=== PATIENT | female | born 1990 | race Caucasian/White ===

== ENCOUNTER 2016-04-26 08:40 | Emergency (ER) | payer MEDICAID ==
--- NOTE | 2016-04-26 09:22 | EDM.PDOC ---
ED HPI ENT - General Chief Complaint: ENT Problem Stated Complaint: SWOLLEN GUMS- LIPS Time Seen by Provider: 04/26/16 08:40 Source: Reports: Patient History Limitations: Reports: No limitations - History of Present Illness INITIAL COMMENTS - FREE TEXT/NARRATIVE: 25 years old w f came to the ed due to gum swelling and pain for 2-3 days. Pt smokes 1/2 of cigarets a days, is applying mouth care without improvement. Pt stated he temp was up this morning. Temp on arrival was 36.7. Pt stated she had pain all night long, could not sleep. 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 - Related Data Allergies/ADRs: Allergies Allergy/AdvReac Type Severity Reaction Status Date / Time amoxicillin [Amoxicillin] Allergy Rash Verified 04/26/16 09:00 erythromycin ethylsuccinate Allergy Rash Verified 04/26/16 09:00 [From Pediazole] sulfisoxazole acetyl Allergy Rash Verified 04/26/16 09:00 [From Pediazole] Home Meds: Home Meds Azithromycin [IJP: Azithromycin] 250 mg PO DAILY #6 tab 04/26/16 [Rx] traMADol [Ultram] 50 mg PO Q4H PRN #8 tab 04/26/16 [Rx] Past Medical History Respiratory History: Reports: Asthma Genitourinary History: Reports: UTI, recurrent 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 degenerative disc Dz Psychiatric History: Reports: ADHD, Other (see below) Other Psychiatric History: hx of drug seeking - Past Surgical History HEENT Surgical History: Reports: Adenoidectomy, Oral surgery, Tonsillectomy Musculoskeletal Surgical History: Reports: Other (see below) Other Musculoskeletal Surgeries/Procedures:: femur. 2 back Sx Social & Family History - Family History Family Medical History: Noncontributory - Tobacco Use Smoking Status *Q: Current Every Day Smoker Years of Tobacco use: 8 Packs/Tins Daily: 0.5 Used Tobacco, but Quit: No Second Hand Smoke Exposure: Yes - Caffeine Use Caffeine Use: Reports: None - Alcohol Use Days Per Week of Alcohol Use: 3 Number of Drinks Per Day: 1 Total Drinks Per Week: 3 - Recreational Drug Use Recreational Drug Use: No ED ROS ENT - Review of Systems Review Of Systems: See Below Constitutional: Reports: no symptoms HEENT: Reports: Other (gum swelling, pain) Respiratory: Reports: no symptoms Cardiovascular: Reports: No symptoms Endocrine: Reports: no symptoms GI/Abdominal: Reports: No symptoms : Reports: no symptoms Musculoskeletal: Reports: back pain Skin: Reports: no symptoms Neurological: Reports: no symptoms Psychiatric: Reports: No symptoms Hematologic/Lymphatic: Reports: no symptoms Immunologic: Reports: no symptoms ED EXAM, ENT - Physical Exam Exam: See Below Exam Limited By: No limitations General Appearance: alert, WD/WN, mild distress Ears: normal external exam, normal canal Nose: normal inspection, normal mucousa Mouth/Throat: Normal lips, Normal oropharynx, Dental pain, Gum swelling Head: atraumatic, normocephalic Neck: normal inspection, supple, non-tender, full range of motion Respiratory/Chest: no respiratory distress, lungs clear, normal breath sounds, no accessory muscle use, chest non-tender Cardiovascular: normal peripheral pulses, regular rate, rhythm, no edema, no gallop, no JVD, no murmur, no rub GI/Abdominal: normal bowel sounds, soft, non tender, no organomegaly, no distention, no abnormal bruit, no mass (Female) Exam: Deferred Rectal (Female) Exam: Deferred Back: normal inspection Extremities: normal inspection, normal range of motion, non-tender, no pedal edema Neurological: alert, oriented, CN II-XII intact, normal cognition, normal gait Psychiatric: normal affect, normal mood Skin: Warm, Dry, Intact, Normal color, No rash Lymphatic: no adenopathy Course - Vital Signs Text/Narrative:: 25 years old w f came to the ed due to gum swelling and pain for 2-3 days. Pt smokes 1/2 of cigarets a days, is applying mouth care without improvement. Pt stated he temp was up this morning. Temp on arrival was 36.7. Pt stated she had pain all night long, could not sleep. PE: Swollen gums Impression: Gingivitis Tx: Azithromycin (pt stated she was tolerating this mediscation in the past), Ultram, Viscous lidocain. Reexam: Improvement Plan: D/C with instructions Last Recorded V/S: Last Vital Signs Temp 36.8 C 04/26/16 09:55 Pulse 82 04/26/16 09:55 Resp 18 04/26/16 09:55 BP 116/90 04/26/16 09:55 Pulse Ox 100 04/26/16 09:55 - Orders/Labs/Meds Meds: Medications Discontinued Medications Generic Name Dose Route Start Last Admin Trade Name Freq PRN Reason Stop Dose Admin Lidocaine HCl 15 ml 04/26/16 09:32 04/26/16 09:41 Xylocaine 2% Viscous PO 04/26/16 09:33 15 ml ONETIME ONE Administration Tramadol HCl 100 mg 04/26/16 09:32 04/26/16 09:41 Ultram PO 04/26/16 09:33 100 mg ONETIME ONE Administration Departure - Departure Time of Disposition: 09:27 Disposition: Home, Self-Care 01 Condition: good Clinical Impression: Gingivitis Prescriptions: Azithromycin [IJP: Azithromycin] 250 mg PO DAILY #6 tab traMADol [Ultram] 50 mg PO Q4H PRN #8 tab PRN Reason: severe pain Instructions: Gingivitis Referrals: Antoni Waldrop MD [Primary Care Provider] - Forms: ED Department Discharge Additional Instructions: please follow instructions given, please see a dentist, please came back to the ed if symptoms get worse acutely.
[2016-04-26] MEDS ORDERED: Lidocaine 2% Viscous Solution 15 ML Cup PO ONE (09:32)
[2016-04-26] MEDS ORDERED: traMADol 50 MG Tab PO ONE (09:32)
[2016-04-26 10:22] VITALS: BP 116/90
== END 2016-04-26 09:55 | disposition home or self-care (01) ==
LOC: FB.ED 08:40
DX: K05.10 Chronic gingivitis, plaque induced (principal); J45.909 Unspecified asthma, uncomplicated; F17.210 Nicotine dependence, cigarettes, uncomplicated; Z88.1 Allergy status to other antibiotic agents; Z88.2 Allergy status to sulfonamides
CPT/HCPCS: 99282; 99283; A9270

== ENCOUNTER 2017-10-03 09:16 | Day surgery (SDC) | payer MEDICAID ==
[~2017-10-03 09:16] MED LIST: Lactated Ringers 1,000 ML IV SCH; Sodium Chloride 0.9% 10 ML Syringe FLUSH PRN
[2017-10-03] MEDS ORDERED: Albuterol/Ipratropium 3.0-0.5 MG/3 ML Neb Soln NEB ONE (11:08)
[2017-10-03] MEDS ORDERED: Albuterol/Ipratropium 3.0-0.5 MG/3 ML Neb Soln ONE (11:12)
[2017-10-03] MEDS ORDERED: Ondansetron 4 MG/2 ML SDV IVPUSH ONE (11:45)
[2017-10-03] MEDS ORDERED: Midazolam 1 MG/ML 2 ML SDV IV ONE (11:45)
[2017-10-03] MEDS ORDERED: Propofol 200 MG/20 ML SDV IV ONE (11:45)
[2017-10-03] MEDS ORDERED: Lactated Ringers 1,000 ML IV ONE (11:45)
[2017-10-03] MEDS ORDERED: fentaNYL 100 MCG/2 ML SDV IV ONE (11:45)
[2017-10-03] MEDS ORDERED: Ketorolac 30 MG/ML SDV IVPUSH ONE (11:45)
[2017-10-03] MEDS ORDERED: Bupivacaine 0.5% 30 ML SDV INJECT ONE (12:02)
[2017-10-03] MEDS ORDERED: Lidocaine 1% with EPINEPHrine 1:100,000 20 ML MDV INJECT ONE (12:02)
--- NOTE | 2017-10-03 12:23 | PCM.OPNOTE ---
- General Post-Op/Procedure Note Date of Surgery/Procedure: 10/03/17 Operative Procedure(s): excision of nodule in scar Findings: 3x1 cm cystic nodule Pre Op Diagnosis: tender nodule c section incision. Post-Op Diagnosis: Same Anesthesia Technique: Local (18 ml 1 % lido with epi/0.5% buvipicaine), MAC Primary Surgeon: Aldair Pan Anesthesia Provider: Andrew Bliss Pathology: scar tissue Complications: None Condition: Good Free Text/Narrative:: see dictation
[2017-10-03] MEDS ORDERED: hydrOXYzine HCl 50 MG/ML SDV IM ONE (13:41)
--- NOTE | 2017-10-03 13:45 | CR ---
INDICATION: Preop, possible pneumonia, patient coughing. CHEST: Two PA views and a lateral view of the chest 10/03/2017 were compared with 08/17/2010 and again revealed a moderate dextroconvex scoliosis of the thoracic spine. Heart and mediastinum were unremarkable. An active infiltrate or effusion was not identified. IMPRESSION: No acute process. Report was called to Surgery, Janet, immediately after the examination was completed on 10/03/2017. CORNELIA
[2017-10-03 14:40] VITALS: BP 110/74
--- NOTE | 2017-10-03 19:02 | OR ---
DATE OF OPERATION: 10/03/2017 SURGEON: Aldair Pan MD PROCEDURE PERFORMED: Excisional biopsy of scar. PREOPERATIVE DIAGNOSIS: Nodule, scar. POSTOPERATIVE DIAGNOSIS: Nodule, scar. INDICATIONS FOR PROCEDURE: This is a 26-year-old white female, who is referred by Dr. Darek Uribe. She had a cystic tender mass noted on ultrasound in the left lower quadrant lateral aspect of her previous Pfannenstiel incision. It was tender, it was not able to be aspirated. She was offered and accepted excisional biopsy. INTRAOPERATIVE FINDINGS: A nodule with cystic component was identified essentially involving Desean's fascia. The total anesthetic was 18 mL. DESCRIPTION OF OPERATION: After an excellent IV sedation was administered, the patient was prepped and draped in usual sterile manner. The area of the planned incision was infiltrated with a 1:1 mixture of 1% lidocaine with epinephrine, 0.5% bupivacaine. Incision was then made and the sharp dissection was carried out exposing the nodule. This was then grasped with an Allis clamp and excised from the surrounding tissues using Rees scissors. On palpation, the abdominal wall fascia was noted to be completely intact. The Desean's was reapproximated with a running 0 Vicryl and a running subcu 4-0 Vicryl was used to close the skin. Steri-Strips were applied. A field block was then carried out using an additional amount of local surrounding the wound and then also just medial to the anterior-superior iliac spine doing a deep intramuscular injection. The patient tolerated procedure well, was taken to recovery room. /[id number] ELLEN/MEHRAN
== END 2017-10-03 14:28 | disposition home or self-care (01) ==
LOC: FB.SDS 09:16
PROVIDERS: ATTEND Surgery
DX: N80.8 Other endometriosis (principal); M51.17 Intervertebral disc disorders with radiculopathy, lumbosacral region; H53.022 Refractive amblyopia, left eye; H52.00 Hypermetropia, unspecified eye; M19.90 Unspecified osteoarthritis, unspecified site; F90.9 Attention-deficit hyperactivity disorder, unspecified type; Z79.899 Other long term (current) drug therapy; Z88.1 Allergy status to other antibiotic agents; Z87.891 Personal history of nicotine dependence
CPT/HCPCS: 22999; 71046; 81025; 88305; 94640; J1885; J2250; J2405; J2704; J3010; J3410; J3490; J7120; J7620-GY

== ENCOUNTER 2017-11-27 16:45 | Emergency (ER) | payer MEDICAID ==
[2017-11-27] MEDS ORDERED: Sodium Chloride 0.9% 1,000 ML IV ONE (17:38)
[2017-11-27] MEDS ORDERED: Acetaminophen 325 MG Tab PO ONE (18:27)
[2017-11-27] MEDS ORDERED: Ibuprofen 600 MG Tab PO ONE (18:28)
[2017-11-27] MEDS ORDERED: Acetaminophen 500 MG Tab ONE (18:28)
[2017-11-27] MEDS ORDERED: Ondansetron 4 MG Tab.DIS PO ONE (18:30)
[2017-11-27] MEDS ORDERED: Azithromycin 250 MG Tab PO SCH (18:30)
[2017-11-27] MEDS ORDERED: Acetaminophen 500 MG Tab PO ONE (18:57)
[2017-11-27 20:15] VITALS: BP 113/36
--- NOTE | 2017-11-29 21:05 | EDM.PDOC ---
ED HPI GENERAL MEDICAL PROBLEM - General Chief Complaint: Fever Stated Complaint: 103 TEMP Time Seen by Provider: 11/27/17 17:30 Source of Information: Reports: Patient History Limitations: Reports: No Limitations - History of Present Illness INITIAL COMMENTS - FREE TEXT/NARRATIVE: Very sick 27-year-old consistent with due to his coughing increasing shortness of breath, fever neck soreness along with total body aches. Her last flu shot was 2016. He complains her legs ache and no history of trauma or abuse and is not . She vomited twice today and once yesterday. He has moderate nausea. She is a smoker Generalized Pain Score (Numeric/FACES): 8 - Related Data Allergies Allergy/AdvReac Type Severity Reaction Status Date / Time amoxicillin [Amoxicillin] Allergy Rash Verified 11/27/17 17:16 erythromycin ethylsuccinate Allergy Rash Verified 11/27/17 17:16 [From Pediazole] sulfisoxazole acetyl Allergy Rash Verified 11/27/17 17:16 [From Pediazole] Home Meds: Home Meds traMADol [Ultram] 50 mg PO Q4H PRN #8 tab 04/26/16 [Rx] Albuterol [Ventolin HFA] 2 puff IH Q4H PRN 10/03/17 [History] Cyclobenzaprine [Flexeril] 10 mg PO TID PRN 10/03/17 [History] Dextroamphetamine/Amphetamine [Adderall Xr 30 mg Capsule] 30 mg PO DAILY [History] Gabapentin [Neurontin] 300 mg PO TID PRN 10/03/17 [History] Ibuprofen [Motrin] 800 mg PO TID PRN 10/03/17 [History] traZODone 100 mg PO BEDTIME PRN 10/03/17 [History] Azithromycin [Zithromax] 250 mg PO DAILY #4 tab 11/27/17 [Rx] Celecoxib [CeleBREX] 200 mg PO BID PRN 11/27/17 [History] Codeine/guaiFENesin [guaiFENesin-Codeine Syrup] 10 ml PO Q4HR PRN #120 ml [Rx] Ondansetron [Zofran ODT] 4 mg PO Q6H PRN #8 tab.dis 11/28/17 [Rx] traMADol [Ultram] 100 mg PO Q4H PRN #20 tab 11/28/17 [Rx] Past Medical History HEENT History: Reports: Impaired Vision Cardiovascular History: Reports: None Respiratory History: Reports: Asthma Gastrointestinal History: Reports: None Genitourinary History: Reports: Pyelonephritis, UTI, Recurrent STAFF TRAINER History: Reports: Endometriosis, Other STAFF TRAINER History: [id number] Musculoskeletal History: Reports: Arthritis, Back Pain, Chronic, Fracture Other Musculoskeletal History: hx R femur fx, hx R fx radius Neurological History: Reports: Seizure Psychiatric History: Reports: ADHD, Bipolar, Other (See Below) Other Psychiatric History: CHRONIC, CONTINUOUS USE OF OPIOIDS Endocrine/Metabolic History: Reports: None Hematologic History: Reports: None Oncologic (Cancer) History: Reports: None Dermatologic History: Reports: None - Past Surgical History HEENT Surgical History: Reports: Adenoidectomy, Oral Surgery, Tonsillectomy Female Surgical History: Reports: Section Other Female Surgeries/Procedures: CS x 2, had tumor--from endometriosis Neurological Surgical History: Reports: Discectomy, Laminectomy Other Neurological Surgeries/Procedures: back surgery x 3 Musculoskeletal Surgical History: Reports: Other (See Below) Other Musculoskeletal Surgeries/Procedures:: REPAIR BROKEN FEMUR-2ND GRADE Social & Family History - Family History Family Medical History: Noncontributory - Tobacco Use Smoking Status *Q: Current Every Day Smoker Years of Tobacco use: 10 Packs/Tins Daily: 0.5 - Caffeine Use Caffeine Use: Reports: None - Recreational Drug Use Recreational Drug Use: No ED ROS GENERAL - Review of Systems Review Of Systems: See Below Constitutional: Reports: Fatigue HEENT: Reports: Throat Pain Respiratory: Reports: Cough Cardiovascular: Reports: No Symptoms Endocrine: Reports: No Symptoms GI/Abdominal: Reports: Abdominal Pain, Vomiting : Reports: No Symptoms Musculoskeletal: Reports: Muscle Pain Skin: Reports: No Symptoms Neurological: Reports: No Symptoms Psychiatric: Reports: No Symptoms Hematologic/Lymphatic: Reports: No Symptoms Immunologic: Reports: No Symptoms ED EXAM, GENERAL - Physical Exam Exam: See Below Free Text/Narrative:: This 27-year-old well muscled well-nourished despondent slightly feverish and dehydrated and in marked discomfort over her myalgia d Exam Limited By: No Limitations General Appearance: Alert, WD/WN, Moderate Distress Eye Exam: Bilateral Eye: Normal Inspection Nose: Normal Inspection Throat/Mouth: Inflammation, Other (Mild pharyngeal erythema mild dryness oral mucosa) Neck: Lymphadenopathy (R), Lymphadenopathy (L) Respiratory/Chest: No Respiratory Distress, Lungs Clear, Normal Breath Sounds, No Accessory Muscle Use, Chest Non-Tender Cardiovascular: Normal Peripheral Pulses, Regular Rate, Rhythm, No Edema, No Gallop, No JVD, No Murmur, No Rub Peripheral Pulses: 1+: Radial (L), Radial (R) GI/Abdominal: Normal Bowel Sounds, Soft, Non-Tender, No Organomegaly, No Distention, No Abnormal Bruit (Female) Exam: Deferred Rectal (Female) Exam: Deferred Back Exam: Normal Inspection Extremities: Normal Inspection, Normal Range of Motion, Non-Tender Neurological: Alert, Normal Cognition, Normal Reflexes, No Motor/Sensory Deficits Skin Exam: Warm, Dry, Intact, Normal Color Lymphatic: No Adenopathy Course - Vital Signs Last Recorded V/S: Last Vital Signs Temp 38.4 C H 11/27/17 18:47 Pulse 108 H 11/27/17 18:39 Resp 18 11/27/17 18:39 BP 113/36 L 11/27/17 18:39 Pulse Ox 96 11/27/17 18:39 - Orders/Labs/Meds Labs: Laboratory Tests 11/27/17 11/27/17 11/27/17 Range/Units 17:04 17:04 17:54 WBC 11.6 (4.5-12.0) X10-3/uL RBC 5.35 H (3.23-5.20) x10(6)uL Hgb 16.2 H (11.5-15.5) g/dL Hct 47.0 (30.0-51.3) % MCV 87.9 (80-96) fL MCH 30.3 (27.7-33.6) pg MCHC 34.5 (32.2-35.4) g/dL RDW 12.3 (11.5-15.5) % Plt Count 148 (125-369) X10(3)uL MPV 9.4 (7.4-10.4) fL Add Manual Diff Yes Neutrophils % (Manual) 72 (46-82) % Band Neutrophils % 4 (0-6) % Lymphocytes % (Manual) 14 (13-37) % Monocytes % (Manual) 8 (4-12) % Eosinophils % (Manual) 2 (0-5) % Sodium (135-145) mmol/L Potassium (3.5-5.3) mmol/L Chloride (100-110) mmol/L Carbon Dioxide (21-32) mmol/L BUN (7-18) mg/dL Creatinine (0.55-1.02) mg/dL Est Cr Clr Drug Dosing mL/min Estimated GFR (MDRD) (>60) BUN/Creatinine Ratio (9-20) Glucose (80-116) mg/dL Calcium (8.6-10.2) mg/dL Total Bilirubin (0.1-1.3) mg/dL AST (5-25) IU/L ALT (12-36) U/L Alkaline Phosphatase (56-112) IU/L Total Protein (6.0-8.0) g/dL Albumin (3.5-5.2) g/dL Globulin g/dL Albumin/Globulin Ratio Urine Color Yellow (YELLOW) Urine Appearance Clear (CLEAR) Urine pH 6.0 (5.0-6.5) Ur Specific [place] 1.010 (1.010-1.025) Urine Protein Negative (NEGATIVE) mg/dL Urine Glucose (UA) Normal (NEGATIVE) mg/dL Urine Ketones Negative (NEGATIVE) mg/dL Urine Occult Blood Trace (NEGATIVE) Urine Nitrite Negative (NEGATIVE) Urine Bilirubin Negative (NEGATIVE) Urine Urobilinogen Normal (NEGATIVE) mg/dL Ur Leukocyte Esterase Negative (NEGATIVE) Urine RBC 0-5 (0) Urine WBC 0-5 (0) Ur Squamous Epith Cells Few H (NS,R,O) Urine Bacteria Few H (NS) Urine HCG, Qual Negative (NEGATIVE) 11/27/17 Range/Units 17:54 WBC (4.5-12.0) X10-3/uL RBC (3.23-5.20) x10(6)uL Hgb (11.5-15.5) g/dL Hct (30.0-51.3) % MCV (80-96) fL MCH (27.7-33.6) pg MCHC (32.2-35.4) g/dL RDW (11.5-15.5) % Plt Count (125-369) X10(3)uL MPV (7.4-10.4) fL Add Manual Diff Neutrophils % (Manual) (46-82) % Band Neutrophils % (0-6) % Lymphocytes % (Manual) (13-37) % Monocytes % (Manual) (4-12) % Eosinophils % (Manual) (0-5) % Sodium 137 (135-145) mmol/L Potassium 4.0 (3.5-5.3) mmol/L Chloride 103 (100-110) mmol/L Carbon Dioxide 25 (21-32) mmol/L BUN 10 (7-18) mg/dL Creatinine 1.0 (0.55-1.02) mg/dL Est Cr Clr Drug Dosing 95.29 mL/min Estimated GFR (MDRD) > 60 (>60) BUN/Creatinine Ratio 10.0 (9-20) Glucose 86 (80-116) mg/dL Calcium 8.9 (8.6-10.2) mg/dL Total Bilirubin 1.1 (0.1-1.3) mg/dL AST 10 (5-25) IU/L ALT 15 (12-36) U/L Alkaline Phosphatase 79 (56-112) IU/L Total Protein 7.4 (6.0-8.0) g/dL Albumin 3.6 (3.5-5.2) g/dL Globulin 3.8 g/dL Albumin/Globulin Ratio 1.0 Urine Color (YELLOW) Urine Appearance (CLEAR) Urine pH (5.0-6.5) Ur Specific [place] (1.010-1.025) Urine Protein (NEGATIVE) mg/dL Urine Glucose (UA) (NEGATIVE) mg/dL Urine Ketones (NEGATIVE) mg/dL Urine Occult Blood (NEGATIVE) Urine Nitrite (NEGATIVE) Urine Bilirubin (NEGATIVE) Urine Urobilinogen (NEGATIVE) mg/dL Ur Leukocyte Esterase (NEGATIVE) Urine RBC (0) Urine WBC (0) Ur Squamous Epith Cells (NS,R,O) Urine Bacteria (NS) Urine HCG, Qual (NEGATIVE) Meds: Medications Discontinued Medications Generic Name Dose Route Start Last Admin Trade Name [place] PRN Reason Stop Dose Admin Acetaminophen 975 mg 11/27/17 18:27 Tylenol PO 11/27/17 18:28 NOW ONE Acetaminophen Confirm 11/27/17 18:28 11/27/17 18:48 Tylenol Extra Strength Administered 11/27/17 18:29 1,000 mg Dose Administration 1,000 mg .ROUTE .STK-MED ONE Acetaminophen 1,000 mg 11/27/17 18:57 Tylenol Extra Strength PO 11/27/17 18:58 ONETIME ONE Azithromycin 500 mg 11/27/17 18:30 11/27/17 18:48 Zithromax PO 500 mg DAILY BRANDIE Administration Sodium Chloride 1,000 mls @ 999 mls/hr 11/27/17 17:38 Normal Saline IV 11/27/17 18:38 .BOLUS ONE Ibuprofen 600 mg 11/27/17 18:28 11/27/17 18:47 Motrin PO 11/27/17 18:29 600 mg ONETIME ONE Administration Departure - Departure Time of Disposition: 18:45 (Patient was upset that she didn't get her drink water and IV therapy. Came back to talk to her. Had concerns because of her high fever myalgia total generalized aches that perhaps I could at the fracture illness days of early pneumonia. This is not clear on basis of examination. I had a high suspicion spurs. Also had a high suspicion that she would be upset if she did have antibiotics. We talked about that. And I offered her azithromycin though my best to admission felt this was a virus feel better. 1. later she came out and stated that she didn't care for 3 hours and she was for angry and was going to leave. Not been here for 3 hours she been for an hour plus. She was rude to the nurses.) Disposition: Home, Self-Care 01 Condition: Fair Clinical Impression: Viremia, Myalgia, Dehydration - Discharge Information *PRESCRIPTION DRUG MONITORING PROGRAM REVIEWED*: Not Applicable *COPY OF PRESCRIPTION DRUG MONITORING REPORT IN PATIENT NEL: Not Applicable Prescriptions: Azithromycin [Zithromax] 250 mg PO DAILY #4 tab Instructions: Ondansetron oral dissolving tablet, Ibuprofen tablets and capsules, Viral Respiratory Infection, [id number], Azithromycin tablets, Acetaminophen tablets or caplets Referrals: Darek Uribe MD [Primary Care Provider] - Forms: ED Department Discharge Additional Instructions: Is no clear indication the cause of your fever U have a slightly elevated white count this very suggested of an viral illness. However because of fever and your feeling so miserable I plan to treat with antibiotic Z-Lex. Use Tylenol 1000 mg +600 mg ibuprofen together every 6 hours for cough and fever pain. Follow up with her doctor in a week earlier if you're worse
== END 2017-11-27 18:49 | disposition home or self-care (01) ==
LOC: FB.ED 16:45
DX: B34.9 Viral infection, unspecified (principal); E86.0 Dehydration; F17.210 Nicotine dependence, cigarettes, uncomplicated; Z88.1 Allergy status to other antibiotic agents; Z88.2 Allergy status to sulfonamides
CPT/HCPCS: 36415; 80053; 81001; 81025; 85025; 87081; 87804; 87880; 99283; A9270

== ENCOUNTER 2017-11-28 12:45 | Emergency (ER) | payer MEDICAID ==
[2017-11-28] MEDS ORDERED: Sodium Chloride 0.9% 1,000 ML IV ONE ×2 (13:19→15:22)
[2017-11-28] MEDS ORDERED: Ibuprofen 800 MG Tab PO ONE (13:23)
[2017-11-28] MEDS ORDERED: Acetaminophen 500 MG Tab PO ONE (13:27)
[2017-11-28] MEDS: Sodium Chloride 0.9% 10 ML Syringe FLUSH PRN ×2 (13:42→15:35)
--- NOTE | 2017-11-28 14:06 | EDM.PDOC ---
ED HPI GENERAL MEDICAL PROBLEM - General Chief Complaint: General Stated Complaint: FEVER NO APPETITE Time Seen by Provider: 11/28/17 13:10 Source of Information: Reports: Patient History Limitations: Reports: No Limitations - History of Present Illness INITIAL COMMENTS - FREE TEXT/NARRATIVE: This 27-year-old woman was seen by myself yesterday. She is a bounce back because he has marked terrible increased total body myalgia, fever, was not able to keep her azithromycin and prednisone within the gastrointestinal tract/ as soon initiated by mouth intake she vomited yesterday. She feels weak, dehydrated, short of breath, has a productive clear sputum cough and has mild chest wall discomfort from coughing Generalized Pain Score (Numeric/FACES): 10 - Related Data Allergies Allergy/AdvReac Type Severity Reaction Status Date / Time amoxicillin [Amoxicillin] Allergy Rash Verified 11/27/17 17:16 erythromycin ethylsuccinate Allergy Rash Verified 11/27/17 17:16 [From Pediazole] sulfisoxazole acetyl Allergy Rash Verified 11/27/17 17:16 [From Pediazole] Home Meds: Home Meds traMADol [Ultram] 50 mg PO Q4H PRN #8 tab 04/26/16 [Rx] Albuterol [Ventolin HFA] 2 puff IH Q4H PRN 10/03/17 [History] Cyclobenzaprine [Flexeril] 10 mg PO TID PRN 10/03/17 [History] Dextroamphetamine/Amphetamine [Adderall Xr 30 mg Capsule] 30 mg PO DAILY [History] Gabapentin [Neurontin] 300 mg PO TID PRN 10/03/17 [History] Ibuprofen [Motrin] 800 mg PO TID PRN 10/03/17 [History] traZODone 100 mg PO BEDTIME PRN 10/03/17 [History] Azithromycin [Zithromax] 250 mg PO DAILY #4 tab 11/27/17 [Rx] Celecoxib [CeleBREX] 200 mg PO BID PRN 11/27/17 [History] Codeine/guaiFENesin [guaiFENesin-Codeine Syrup] 10 ml PO Q4HR PRN #120 ml [Rx] Ondansetron [Zofran ODT] 4 mg PO Q6H PRN #8 tab.dis 11/28/17 [Rx] traMADol [Ultram] 100 mg PO Q4H PRN #20 tab 11/28/17 [Rx] Past Medical History HEENT History: Reports: Impaired Vision Cardiovascular History: Reports: None Respiratory History: Reports: Asthma Gastrointestinal History: Reports: None Genitourinary History: Reports: Pyelonephritis, UTI, Recurrent 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: Reports: Endometriosis, Other 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: [id number] Musculoskeletal History: Reports: Arthritis, Back Pain, Chronic, Fracture Other Musculoskeletal History: hx R femur fx, hx R fx radius Neurological History: Reports: Seizure Psychiatric History: Reports: ADHD, Bipolar, Other (See Below) Other Psychiatric History: CHRONIC, CONTINUOUS USE OF OPIOIDS Endocrine/Metabolic History: Reports: None Hematologic History: Reports: None Oncologic (Cancer) History: Reports: None Dermatologic History: Reports: None - Past Surgical History HEENT Surgical History: Reports: Adenoidectomy, Oral Surgery, Tonsillectomy Female Surgical History: Reports: Section Other Female Surgeries/Procedures: CS x 2, had tumor--from endometriosis Neurological Surgical History: Reports: Discectomy, Laminectomy Other Neurological Surgeries/Procedures: back surgery x 3 Musculoskeletal Surgical History: Reports: Other (See Below) Other Musculoskeletal Surgeries/Procedures:: REPAIR BROKEN FEMUR-2ND GRADE Social & Family History - Family History Family Medical History: Noncontributory - Caffeine Use Caffeine Use: Reports: None ED ROS GENERAL - Review of Systems Review Of Systems: See Below Constitutional: Reports: Fever, Weakness, Other (Total body myalgias today) HEENT: Reports: Throat Pain Respiratory: Reports: Shortness of Breath, Cough Cardiovascular: Reports: No Symptoms Endocrine: Reports: No Symptoms GI/Abdominal: Reports: No Symptoms, Other (Limited once with taking her medicine prednisone azithromycin last night) : Reports: No Symptoms, Other (Not ) Musculoskeletal: Reports: Muscle Pain Skin: Reports: No Symptoms Neurological: Reports: No Symptoms Psychiatric: Reports: No Symptoms Hematologic/Lymphatic: Reports: No Symptoms Immunologic: Reports: No Symptoms ED EXAM, GENERAL - Physical Exam Exam: See Below Free Text/Narrative:: Patient is a 27-year-old woman who is quite dysphoric with tears over pain and total body myalgia. This is reflected in her laying in a position and talking through tears about how much pain she is experiencing. She is not coughing presently. Covered up by a blanket because of chills and fever. Exam Limited By: No Limitations General Appearance: Alert, Moderate Distress Eye Exam: Right Eye: Other, Bilateral Eye: Normal Inspection Ears: Normal External Exam, Normal Canal, Hearing Grossly Normal, Normal TMs Ear Exam: Bilateral Ear: Auricle Normal, Canal Normal, TM normal Nose: Normal Inspection Throat/Mouth: Normal Inspection Head: Atraumatic, Normocephalic Neck: Normal Inspection, Supple, Non-Tender, Full Range of Motion Respiratory/Chest: No Respiratory Distress, No Accessory Muscle Use, Chest Non- Tender, Rales, Other (Urinalysis the posterior basis) Peripheral Pulses: 1+: Radial (L), Radial (R) GI/Abdominal: Normal Bowel Sounds, Soft, Non-Tender, No Organomegaly, No Distention, No Abnormal Bruit, No Mass (Female) Exam: Deferred Rectal (Female) Exam: Deferred Back Exam: Normal Inspection Extremities: Normal Inspection, Normal Range of Motion, Non-Tender, No Pedal Edema, Normal Capillary Refill Neurological: Alert, Oriented, CN II-XII Intact, Normal Cognition, Normal Gait, Normal Reflexes, No Motor/Sensory Deficits Psychiatric: Anxious, Other (Dysphoric and exhibits "more hydrama" than be considered usual) Course - Vital Signs Last Recorded V/S: Last Vital Signs Temp 37.7 C 11/28/17 14:41 Pulse 85 11/28/17 15:42 Resp 18 11/28/17 15:42 BP 125/66 11/28/17 15:42 Pulse Ox 99 11/28/17 15:42 - Orders/Labs/Meds Orders: Active Orders 24 hr Category Date Time Status CXR [Chest 2V] [CR] Stat Exams 11/28/17 13:16 Taken CULTURE BLOOD [BC] Urgent Lab 11/28/17 13:45 Received CULTURE BLOOD [BC] Urgent Lab 11/28/17 13:51 Received CULTURE URINE [RM] Stat Lab 11/28/17 15:00 Received MYCOPLASMA PNEUMONIAE, PCR Urgent Lab 11/28/17 13:46 Received Blood Culture x2 Reflex Set [OM.PC] Urgent Oth 11/28/17 13:17 Ordered Labs: Laboratory Tests 11/28/17 11/28/17 11/28/17 Range/Units 13:45 13:45 13:45 WBC 10.8 (4.5-12.0) X10-3/uL RBC 5.19 (3.23-5.20) x10(6)uL Hgb 15.7 H (11.5-15.5) g/dL Hct 45.5 (30.0-51.3) % MCV 87.7 (80-96) fL MCH 30.2 (27.7-33.6) pg MCHC 34.4 (32.2-35.4) g/dL RDW 12.4 (11.5-15.5) % Plt Count 128 (125-369) X10(3)uL MPV 9.9 (7.4-10.4) fL Neut % (Auto) 78.5 (46-82) % Lymph % (Auto) 10.0 L (13-37) % [place] % (Auto) 9.3 (4-12) % Eos % (Auto) 1 (1.0-5.0) % Baso % (Auto) 1 (0-2) % Neut # (Auto) 8.5 H (1.6-8.3) # Lymph # (Auto) 1.1 (0.6-5.0) # [place] # (Auto) 1.0 (0.0-1.3) # Eos # (Auto) 0.1 (0.0-0.8) # Baso # (Auto) 0.1 (0.0-0.2) # D-Dimer, Quantitative 0.37 (0.0-0.59) mg/LFEU Lactic Acid 0.9 (0.4-2.2) mmol/L Urine Color (YELLOW) Urine Appearance (CLEAR) Urine pH (5.0-6.5) Ur Specific [place] (1.010-1.025) Urine Protein (NEGATIVE) mg/dL Urine Glucose (UA) (NEGATIVE) mg/dL Urine Ketones (NEGATIVE) mg/dL Urine Occult Blood (NEGATIVE) Urine Nitrite (NEGATIVE) Urine Bilirubin (NEGATIVE) Urine Urobilinogen (NEGATIVE) mg/dL Ur Leukocyte Esterase (NEGATIVE) Urine RBC (0) Urine WBC (0) Ur Squamous Epith Cells (NS,R,O) Urine Bacteria (NS) Urine Opiates Screen (NEGATIVE) Ur Oxycodone Screen (NEGATIVE) Ur Propoxyphene Screen (NEGATIVE) Ur Barbituates Screen (NEGATIVE) Ur Tricyclics Screen (NEGATIVE) Ur Phencyclidine Scrn (NEGATIVE) Ur Amphetamine Screen (NEGATIVE) Urine MDMA Screen (NEGATIVE) U Benzodiazepines Scrn (NEGATIVE) U Cocaine Metab Screen (NEGATIVE) U Marijuana (THC) Screen (NEGATIVE) 11/28/17 11/28/17 Range/Units 15:00 15:00 WBC (4.5-12.0) X10-3/uL RBC (3.23-5.20) x10(6)uL Hgb (11.5-15.5) g/dL Hct (30.0-51.3) % MCV (80-96) fL MCH (27.7-33.6) pg MCHC (32.2-35.4) g/dL RDW (11.5-15.5) % Plt Count (125-369) X10(3)uL MPV (7.4-10.4) fL Neut % (Auto) (46-82) % Lymph % (Auto) (13-37) % [place] % (Auto) (4-12) % Eos % (Auto) (1.0-5.0) % Baso % (Auto) (0-2) % Neut # (Auto) (1.6-8.3) # Lymph # (Auto) (0.6-5.0) # [place] # (Auto) (0.0-1.3) # Eos # (Auto) (0.0-0.8) # Baso # (Auto) (0.0-0.2) # D-Dimer, Quantitative (0.0-0.59) mg/LFEU Lactic Acid (0.4-2.2) mmol/L Urine Color Yellow (YELLOW) Urine Appearance Slightly cloudy (CLEAR) Urine pH 5.0 (5.0-6.5) Ur Specific [place] 1.015 (1.010-1.025) Urine Protein Negative (NEGATIVE) mg/dL Urine Glucose (UA) Normal (NEGATIVE) mg/dL Urine Ketones 15 H (NEGATIVE) mg/dL Urine Occult Blood Trace (NEGATIVE) Urine Nitrite Positive H (NEGATIVE) Urine Bilirubin Negative (NEGATIVE) Urine Urobilinogen Normal (NEGATIVE) mg/dL Ur Leukocyte Esterase Small H (NEGATIVE) Urine RBC 0-5 (0) Urine WBC 20-30 H (0) Ur Squamous Epith Cells Few H (NS,R,O) Urine Bacteria Many H (NS) Urine Opiates Screen Negative (NEGATIVE) Ur Oxycodone Screen Negative (NEGATIVE) Ur Propoxyphene Screen Negative (NEGATIVE) Ur Barbituates Screen Negative (NEGATIVE) Ur Tricyclics Screen Negative (NEGATIVE) Ur Phencyclidine Scrn Negative (NEGATIVE) Ur Amphetamine Screen Negative (NEGATIVE) Urine MDMA Screen Negative (NEGATIVE) U Benzodiazepines Scrn Negative (NEGATIVE) U Cocaine Metab Screen Negative (NEGATIVE) U Marijuana (THC) Screen Positive H (NEGATIVE) Meds: Medications Discontinued Medications Generic Name Dose Route Start Last Admin Trade Name Freq PRN Reason Stop Dose Admin Acetaminophen 1,000 mg 11/28/17 21:00 Tylenol Extra Strength PO BEDTIME BRANDIE Acetaminophen 1,000 mg 11/28/17 13:27 11/28/17 13:41 Tylenol Extra Strength PO 11/28/17 13:28 1,000 mg ONETIME ONE Administration Azithromycin 500 mg 11/29/17 09:00 Zithromax PO DAILY BRANDIE Azithromycin 500 mg 11/28/17 15:17 11/28/17 15:28 Zithromax PO 11/28/17 15:18 500 mg ONETIME ONE Administration Sodium Chloride 1,000 mls @ 999 mls/hr 11/28/17 13:19 11/28/17 13:42 Normal Saline IV 11/28/17 14:19 999 mls/hr .BOLUS ONE Administration Sodium Chloride 1,000 mls @ 999 mls/hr 11/28/17 15:22 11/28/17 15:34 Normal Saline IV 11/28/17 16:22 999 mls/hr .BOLUS ONE Administration Ibuprofen 800 mg 11/28/17 13:23 11/28/17 13:41 Motrin PO 11/28/17 13:24 800 mg ONETIME ONE Administration Sodium Chloride 10 ml 11/28/17 15:34 11/28/17 15:35 Saline Flush FLUSH 10 ml ASDIRECTED PRN Administration Keep Vein Open Tramadol HCl 100 mg 11/28/17 15:06 11/28/17 15:29 Ultram PO 11/28/17 15:07 100 mg ONETIME ONE Administration Departure - Departure Time of Disposition: 15:10 Disposition: Home, Self-Care 01 Clinical Impression: Acute viral bronchitis, Myalgia Headache Qualifiers: Headache type: unspecified Headache chronicity pattern: acute headache Intractability: not intractable Qualified Code(s): R51 - Headache - Discharge Information *PRESCRIPTION DRUG MONITORING PROGRAM REVIEWED*: Not Applicable *COPY OF PRESCRIPTION DRUG MONITORING REPORT IN PATIENT NEL: Not Applicable Prescriptions: Codeine/guaiFENesin [guaiFENesin-Codeine Syrup] 10 ml PO Q4HR PRN #120 ml PRN Reason: Cough Ondansetron [Zofran ODT] 4 mg PO Q6H PRN #8 tab.dis PRN Reason: Nausea/Vomiting traMADol [Ultram] 100 mg PO Q4H PRN #20 tab PRN Reason: Pain Instructions: Urinary Tract Infection, Adult, Viral Illness, Adult Referrals: Darek Uribe MD [Primary Care Provider] - Forms: ED Department Discharge Additional Instructions: We still first feel very strongly that Q have a viral illness the azithromycin that she vomited yesterday stay down today at good take the remaining 4 pills take 1 tablet daily starting tomorrow. Don't take the prednisone. You're illness is that the virus and there were no signs of blood clot your lungs. You're dehydration has improved with this intravenous fluid and I think you should feel a lot better. Medications taken today will last through tomorrow and the hydration you received today will help carry you through for hydration tomorrow You may still have nausea or upset stomach and even if you don't drink a lot of fluids today you should still get by. Follow-up with your doctor next week For aches and pains and fever use Tylenol and ibuprofen 1000 mg of Tylenol and 600 mg of ibuprofen I have prescribed Zofr so in case she has nausea or vomiting take 1 tablet every 4-6 hoursan - My Orders Last 24 Hours: My Active Orders 11/28/17 13:16 CXR [Chest 2V] [CR] Stat 11/28/17 13:17 Blood Culture x2 Reflex Set [OM.PC] Urgent 11/28/17 13:45 CULTURE BLOOD [BC] Urgent 11/28/17 13:46 MYCOPLASMA PNEUMONIAE, PCR Urgent 11/28/17 13:51 CULTURE BLOOD [BC] Urgent 11/28/17 15:00 CULTURE URINE [RM] Stat - Assessment/Plan Last 24 Hours: My Active Orders 11/28/17 13:16 CXR [Chest 2V] [CR] Stat 11/28/17 13:17 Blood Culture x2 Reflex Set [OM.PC] Urgent 11/28/17 13:45 CULTURE BLOOD [BC] Urgent 11/28/17 13:46 MYCOPLASMA PNEUMONIAE, PCR Urgent 11/28/17 13:51 CULTURE BLOOD [BC] Urgent 11/28/17 15:00 CULTURE URINE [RM] Stat
[2017-11-28] MEDS ORDERED: traMADol 50 MG Tab PO ONE (15:06)
[2017-11-28] MEDS ORDERED: Azithromycin 500 MG Tab PO ONE (15:17)
[2017-11-28 16:11] VITALS: BP 125/66
[2017-11-28] MEDS ORDERED: Acetaminophen 500 MG Tab PO SCH (21:00)
[2017-11-29] MEDS ORDERED: Azithromycin 250 MG Tab PO SCH (09:00)
--- NOTE | 2017-12-01 08:11 | CR ---
INDICATION: Rales, fever, total body myalgia. CHEST: PA and lateral views of the chest were obtained 11/28/2017 and compared with 10/03/2017, again revealing a moderate dextroconvex scoliosis of the mid thoracic spine. Heart and mediastinum were unremarkable. 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 An active infiltrate or effusion was not identified. IMPRESSION: 1. No acute process. 2. Scoliosis. MTDD
--- NOTE | 2017-12-02 08:03 | ER ---
DATE SEEN: 11/28/2017 Urine culture results greater than 100,000 E. coli and sensitive to all medicines except for moxifloxacin and tetracycline. The patient will be prescribed nitrofurantoin 100 mg (Macrodantin) b.i.d. for three days - six tablets. She is to follow up with doctor in 1 to 2 weeks regarding her care and treatment. The patient was left a message to call me back in the emergency room at 1620, as she was not home. /[id number] LIZANDRO/MEHRAN
== END 2017-11-28 16:30 | disposition home or self-care (01) ==
LOC: FB.ED 12:45
DX: J20.8 Acute bronchitis due to other specified organisms (principal); M79.10 Myalgia, unspecified site; Z79.899 Other long term (current) drug therapy; Z88.1 Allergy status to other antibiotic agents; Z88.2 Allergy status to sulfonamides
CPT/HCPCS: 36415; 71046; 80305; 81001; 83605; 85025; 85379; 87040; 87086; 87088; 87186; 87581; 96360; 99283; A9270; J7030; J7050